=== PATIENT | female | born 1990 | race Caucasian/White ===

== ENCOUNTER 2017-03-19 20:39 | Emergency (ER) | payer BC ==
[~2017-03-19] VITALS: Ht 167.6 cm; Wt 61.2 kg
--- NOTE | 2017-03-19 20:55 | NUR ---
PT RECEIVED FROM HOME BIB SELF C/O LEFT WRIST LACERATION WHILE USING DIETITIAN CHIEF. NO SOB NOTED. PAIN IS 6/10 D/T LACERATION WITH BLEEDING NOTED. VSS NAD A/OX4
[2017-03-19] MEDS ORDERED: LIDOCAINE /MPF 1% VIAL 5 ML VIAL ONE (20:56)
[2017-03-19] MEDS ORDERED: LIDOCAINE HCL/PF 1% 30 ML VIAL TP ONE (21:00)
--- NOTE | 2017-03-19 21:00 | NUR ---
ROOM SETUP FOR MD FOR WOUND CARE
--- NOTE | 2017-03-19 21:05 | NUR ---
EMBER WYATT AT [facility] FOR WOUND CARE
--- NOTE | 2017-03-19 21:35 | NUR ---
D/C INSTRUCTIONS GIVEN TO PT. WOUND CARE COMPLETE
[2017-03-19 21:36] VITALS: BP 124/76
== END 2017-03-19 21:36 | disposition home or self-care (01) ==
LOC: ER 20:40
DX: S51.812A Laceration without foreign body of left forearm, initial encounter (principal); W45.8XXA Other foreign body or object entering through skin, initial encounter; Y93.89 Activity, other specified; Y92.89 Other specified places as the place of occurrence of the external cause; Y99.8 Other external cause status
CPT/HCPCS: 12031; 99284; A4606; A6402; J3490 ×2; Z7610

== ENCOUNTER 2017-03-29 11:33 | Emergency (ER) | payer BC ==
[~2017-03-29] VITALS: Ht 167.6 cm; Wt 59.0 kg
[2017-03-29 11:33] VITALS: BP 116/74
== END 2017-03-29 12:08 | disposition home or self-care (01) ==
LOC: ER 11:35
DX: S51.812D Laceration without foreign body of left forearm, subsequent encounter (principal); X58.XXXD Exposure to other specified factors, subsequent encounter; Y93.89 Activity, other specified; Y92.89 Other specified places as the place of occurrence of the external cause; Y99.8 Other external cause status
CPT/HCPCS: A4606; Z7610